=== PATIENT | male | born 1955 | race Caucasian/White ===

== ENCOUNTER 2017-09-25 03:16 | Emergency (ER) | payer OTHER ==
[~2017-09-25] VITALS: Ht 172.7 cm; Wt 83.7 kg
[~2017-09-25 03:16] MED LIST: BENI20TA25 PO; PRAS10TA PO; ROSU40 PO
[2017-09-25 03:27] VITALS: BP 152/86; PULSE 54; RESP 18; TEMP 97.4; O2SAT 98
[2017-09-25] MEDS ORDERED: OLME0.09 PO (04:23)
[2017-09-25] MEDS ORDERED: ASPI81CH6 CHEW (04:23)
[2017-09-25] MEDS ORDERED: ROSU1TAB4 PO (04:23)
[2017-09-25] MEDS ORDERED: PRAS10TA PO (04:23)
[2017-09-25] MEDS ORDERED: OXYMETAZOLINE HCL 0.05% 15 ML NASAL SPRAY NASAL ONE (04:45)
[2017-09-25 05:21] VITALS: BP 131/74; PULSE 56; RESP 16; O2SAT 97
--- NOTE | 2017-09-25 06:40 | PD ---
HPI Chief Complaint: Nosebleed Time Seen by Provider: 04:22 Travel History International Travel<30 days: No Contact w/Intl Traveler<30days: No Traveled to known affect area: No History of Present Illness HPI Patient is a 61-year-old male comes in complaining of a nosebleed. He says it started while he was just sitting at home. He denies any trauma to his nose. He says it did not stop, so he came in. He did not hold any pressure to his nose. He says he tried putting some tissue in it and that did not help. He says this has never happened to him before and is very worried. He denies any dizziness, palpitations, shortness of breath. Severity is mild. PFSH Past Medical History Hx Anticoagulant Therapy: Yes Cancer: No Cardiovascular Problems: Yes (2 STENTS) High Cholesterol: Yes Diabetes: No Diminished Hearing: No Endocrine: No Genitourinary: No Hepatitis: No Hiatal Hernia: No Hypertension: Yes Immune Disorder: No Musculoskeletal: Yes (ARTHRITIS) Neurologic: No Psychiatric: No Reproductive: No Respiratory: No Immunizations Current: Yes Thyroid Disease: No Tetanus Vaccination: < 5 Years Influenza Vaccination: Yes Past Surgical History Abdominal Surgery: Yes ( ANAL FISTULA) AICD: No Coronary Stent: Yes (2) Joint Replacement: No Pacemaker: No Other Surgery: Yes (, FISTULA) Social History Alcohol Use: Yes (1 BEER /MONTH) Tobacco Use: Yes (QUIT 3 MONTHS) Substance Use: No Allergies-Medications (Allergen,Severity, Reaction): Coded Allergies: No Known Allergies (Verified Adverse Reaction, Unknown, 09/25/17) Reported Meds & Prescriptions Reported Meds & Active Scripts Active Reported Olmesartan 20 Mg Tab 20 Mg PO DAILY Aspirin Low Dose (Aspirin) 81 Mg Chew 81 Mg CHEW DAILY Effient (Prasugrel) 10 Mg Tab 10 Mg PO DAILY Rosuvastatin (Rosuvastatin Calcium) 5 Mg Tab 5 Mg PO DAILY Review of Systems General / Constitutional: No: Fever, Chills HENT: Positive: Nosebleed, No: Headaches Cardiovascular: No: Chest Pain or Discomfort Respiratory: No: Shortness of Breath Gastrointestinal: No: Nausea, Vomiting Musculoskeletal: No: Myalgias, Edema Skin: No Rash, No Change in Pigmentation Neurologic: No: Weakness, Dizziness Physical Exam Narrative GENERAL: Awake and alert, no acute distress. SKIN: Focused skin assessment warm/dry. HEAD: Atraumatic. Normocephalic. EYES: Pupils equal and round. No scleral icterus. ENT: Mucous membranes pink and moist. Scant amount of bleeding at the opening of the left nare. CARDIOVASCULAR: Regular rate and rhythm. No murmur appreciated. RESPIRATORY: No accessory muscle use. Clear to auscultation. Breath sounds equal bilaterally. MUSCULOSKELETAL: No obvious deformities. No clubbing. No cyanosis. No edema. NEUROLOGICAL: Awake and alert. No obvious cranial nerve deficits. Motor grossly within normal limits. Normal speech. PSYCHIATRIC: Appropriate mood and affect; insight and judgment normal. Data Data Last Documented VS Vital Signs Date Time Temp Pulse Resp B/P (MAP) Pulse Ox O2 Delivery O2 Flow Rate FiO2 09/25/17 06:52 51 16 118/79 (92) 96 09/25/17 05:21 Room Air 09/25/17 03:27 97.4 Orders Orders Oxymetazoline 0.05% Uche [place] (Afrin 0.0 (09/25/17 04:45) Ed Discharge Order (09/25/17 06:40) [facility] Medical Decision Making Medical Screen Exam Complete: Yes Emergency Medical Condition: Yes Medical Record Reviewed: Yes Differential Diagnosis Anterior nosebleed versus anemia versus posterior nosebleed Narrative Course Patient is a 61-year-old male comes in complaining of a nosebleed. Exam shows scant bleeding to the anterior portion of the left nare. Pressure applied. Patient given an aspirin. Observed in the ED for several hours with no further bleeding. Patient advised to avoid blowing his nose for at least the next day. Advised that if it starts to bleed again, he should hold pressure. Advise follow-up with his doctor. Advised to return to the ED as needed for any worsening symptoms. Diagnosis Primary Impression: Nosebleed Patient Instructions: General Instructions, Nosebleed (ED) Additional Instructions: Do not blow your nose. If you know starts bleeding again, hold pressure. Follow-up with your doctor. Return to the ED as needed for any worsening symptoms. Disposition: 01 DISCHARGE HOME Condition: Stable Kristy Murguia MD Sep 25, 2017 06:40
[2017-09-25 06:52] VITALS: BP 118/79
== END 2017-09-25 06:53 | disposition home or self-care (01) ==
LOC: PHED 03:16
DX: R04.0 Epistaxis (principal); E78.00 Pure hypercholesterolemia, unspecified; I10 Essential (primary) hypertension; M19.90 Unspecified osteoarthritis, unspecified site; Z79.82 Long term (current) use of aspirin; Z79.899 Other long term (current) drug therapy; Z87.891 Personal history of nicotine dependence
CPT/HCPCS: 99282

== ENCOUNTER 2017-11-21 00:45 | Emergency (ER) | payer OTHER ==
[~2017-11-21] VITALS: Ht 172.7 cm; Wt 83.5 kg
[~2017-11-21 00:45] MED LIST changes: +ASPI81CH6 CHEW; -BENI20TA25 PO; +OLME0.09 PO; +ROSU1TAB4 PO; -ROSU40 PO
[2017-11-21 00:50] VITALS: BP 171/86; PULSE 59; RESP 18; TEMP 97.6; O2SAT 97
[2017-11-21] MEDS ORDERED: VALS1TAB65 PO (01:16)
[2017-11-21] MEDS ORDERED: ASPI1TAB93 (01:16)
[2017-11-21 01:17] VITALS: BP 159/88; PULSE 56; RESP 16; O2SAT 98
[2017-11-21] MEDS ORDERED: OXYMETAZOLINE HCL 0.05% 15 ML NASAL SPRAY NASAL ONE (02:00)
[2017-11-21 02:20] LABS: HEMOGLOBIN 13.6 GM/DL (13.0-17.0); MEAN CELL VOLUME 88.4 FL (80.0-100.0); MEAN CORPUSCULAR HEMOGLOBIN 29.4 PG (27.0-34.0); MEAN CORPUSCULAR HGB CONC 33.3 % (32.0-36.0); MEAN PLATELET VOLUME 9.1 FL (7.0-11.0); PLATELET COUNT 266 TH/MM3 (150-450); RED BLOOD COUNT 4.64 MIL/MM3 (4.50-5.90); WHITE BLOOD COUNT 8.3 TH/MM3 (4.0-11.0)
[2017-11-21 02:34] LABS: PROTHROMBIN TIME - PATIENT 10.4 SEC (9.8-11.6)
[2017-11-21 03:02] VITALS: BP 156/72
--- NOTE | 2017-11-21 03:17 | PD ---
HPI Chief Complaint: Nosebleed Time Seen by Provider: 01:51 Travel History International Travel<30 days: No Contact w/Intl Traveler<30days: No Traveled to known affect area: No History of Present Illness HPI 62-year-old male presents to the emergency department complaint of epistaxis. Patient reports had episode of epistaxis at 10 AM the resolved after a short amount of time applying direct pressure. Patient reports this evening that he has been having a nosebleed continuously for 2 hours and decided finally to come to the emergency room for evaluation. Patient has extensive past medical history including coronary vessel disease with stent placement and currently on aspirin and Effient. Patient is also under the care of ENT for recurrent epistaxis. Patient states since recently developed upper respiratory infection has decided to take Excedrin daily for throat pain. Patient states he cannot understand why he has a nosebleed even though he knows he is on Effient aspirin and his increased use of aspirin to Ecotrin. Patient states he cant understand why his dietitian research can identify the cause of his nosebleed. Patient states he is using saline nasal spray and drops to his dietitian research gave him. Patient is taking his antibiotic. Patient is very concerned as to why after several years of not having nosebleeds he has a nosebleed now. Patient denies other concerns or complaints. Patient also reports that he swallows blood sometimes in small has been coughing of blood clots. Patient's had no chest pain no shortness of breath no near-syncope no syncope no diaphoresis and no nausea or vomiting. PFSH Past Medical History Narrative Medical CAD dyslipidemia hypertension cardiac catheterization stent placement Brilinta therapy; occasional alcohol use; nursing notes reviewed Hx Anticoagulant Therapy: Yes Cancer: No Cardiovascular Problems: Yes (2 STENTS) High Cholesterol: Yes Diabetes: No Diminished Hearing: No Endocrine: No Gastrointestinal Disorders: No Genitourinary: No Hepatitis: No Hiatal Hernia: No Hypertension: Yes Immune Disorder: No Medical other: No Musculoskeletal: Yes (ARTHRITIS) Neurologic: No Psychiatric: No Reproductive: No Respiratory: No Immunizations Current: Yes Thyroid Disease: No Past Surgical History Abdominal Surgery: Yes ( ANAL FISTULA) AICD: No Coronary Stent: Yes (2) Joint Replacement: No Pacemaker: No Other Surgery: Yes (, FISTULA) Social History Alcohol Use: Yes (1 BEER /MONTH) Tobacco Use: Yes (QUIT 1 TEAR AGO) Substance Use: No Allergies-Medications (Allergen,Severity, Reaction): Coded Allergies: niacin (Verified Allergy, Severe, HIVES, 11/21/17) Reported Meds & Prescriptions Reported Meds & Active Scripts Active Reported Excedrin Extra Strength ([id number]-Ewolcyis) 250 Mg-250 Mg-65 Mg Tab Valsartan 160 Mg Tab 160 Mg PO DAILY Aspirin Low Dose (Aspirin) 81 Mg Chew 81 Mg CHEW DAILY Effient (Prasugrel) 10 Mg Tab 10 Mg PO DAILY Rosuvastatin (Rosuvastatin Calcium) 5 Mg Tab 5 Mg PO DAILY Review of Systems Except as stated in HPI: all other systems reviewed are Neg Physical Exam Narrative GENERAL: Well-developed well-nourished male no acute distress or respiratory distress SKIN: Warm and dry. HEAD: Normocephalic. EYES: No scleral icterus. No injection or drainage. ENT: Mucous membranes moist airways patent some scant blood in the posterior pharynx small clot in the anterior naris on the left which is dislodged and some recurrent mild bleeding. No anterior source of epistaxis. NECK: Supple, trachea midline. No JVD or lymphadenopathy. CARDIOVASCULAR: Regular rate and rhythm without murmurs, gallops, or rubs. RESPIRATORY: Breath sounds equal bilaterally. No accessory muscle use. GASTROINTESTINAL: Abdomen soft, non-tender, nondistended. MUSCULOSKELETAL: No cyanosis, or edema. BACK: Nontender without obvious deformity. No CVA tenderness. Data Data Last Documented VS Vital Signs Date Time Temp Pulse Resp B/P (MAP) Pulse Ox O2 Delivery O2 Flow Rate FiO2 11/21/17 03:02 66 16 156/72 (100) 99 11/21/17 01:17 Room Air 11/21/17 00:50 97.6 Orders Orders Act Partial Throm Time (Ptt) (11/21/17 01:51) Prothrombin Time / Inr (Pt) (11/21/17 01:51) Cbc No Diff, Includes Plts (11/21/17 01:51) Oxymetazoline 0.05% [facility] [place] (Afrin 0.0 (11/21/17 02:00) Ed Discharge Order (11/21/17 02:51) Labs Laboratory Tests Test 11/21/17 02:10 White Blood Count 8.3 TH/MM3 Red Blood Count 4.64 MIL/MM3 Hemoglobin 13.6 GM/DL Hematocrit 41.0 % Mean Corpuscular Volume 88.4 FL Mean Corpuscular Hemoglobin 29.4 PG Mean Corpuscular Hemoglobin Concent 33.3 % Red Cell Distribution Width 12.0 % Platelet Count 266 TH/MM3 Mean Platelet Volume 9.1 FL Prothrombin Time 10.4 SEC Prothromb Time International Ratio 1.0 RATIO Activated Partial Thromboplast Time 27.3 SEC MDM Medical Decision Making Medical Screen Exam Complete: Yes Emergency Medical Condition: Yes Medical Record Reviewed: Yes Differential Diagnosis Epistaxis, mucosal membrane trauma, sinusitis, trauma, anemia, uncontrolled blood pressure, NSAID use Narrative Course IV access obtained specimens collected and sent for resulting patient applied direct pressure Afrin nasal spray inserted Epistaxis controlled and patient refuses epistaxis balloon however no indication at this time as bleeding controlled with direct pressure and nasal decongestant Patient stable for outpatient management encouraged to follow-up with his dietitian research and his poem writer; patient encouraged to return to the emergency department for any concerns. Diagnosis Primary Impression: Epistaxis Referrals: Ear / Nose / Throat Specialist 2 days Patient Instructions: General Instructions Additional Instructions: Stop taking Excedrin Take Tylenol as needed for minor pain or fever 100.4F or greater Attending chronic medications as chronically prescribed Use [id number] Afrin nasal decongestant spray Continue use nasal saline spray Do not blow your nose Increase fluid hydration Use coolness vaporizer at bedside Avoid hard foods and beverages Return to the emergency department for any concerns or change in condition Med/Other Pt SpecificInfo: No Change to Meds Disposition: 01 DISCHARGE HOME Condition: Stable Selene Cervantes MD Nov 21, 2017 03:17
== END 2017-11-21 03:27 | disposition home or self-care (01) ==
LOC: PHED 00:45
DX: R04.0 Epistaxis (principal); I25.10 Atherosclerotic heart disease of native coronary artery without angina pectoris; E78.5 Hyperlipidemia, unspecified; I10 Essential (primary) hypertension; E78.00 Pure hypercholesterolemia, unspecified; M19.90 Unspecified osteoarthritis, unspecified site; Z87.891 Personal history of nicotine dependence; Z79.82 Long term (current) use of aspirin; Z79.899 Other long term (current) drug therapy
CPT/HCPCS: 85027; 85610; 85730; 99283